=== PATIENT | male | born 1960 | race African-American/Black ===

== ENCOUNTER 2021-08-04 17:20 | Emergency (ER) | payer MEDICARE, OTHER, SELFPAY ==
--- NOTE | ~2021-08-04 | XR_ITS ---
EXAMINATION: XR CHEST CLINICAL INFORMATION: Chest pain COMPARISON: None TECHNIQUE: Frontal view of the chest was obtained. FINDINGS: No significant abnormality is noted involving the heart, lungs, mediastinum, bony thorax or soft tissues. XR/XR chest 1V IMPRESSION: Unremarkable examination.
[2021-08-04 17:36] VITALS: BP 174/107; PULSE 79; RESP 18; TEMP 36.9; O2SAT 99; BMI 27.1
--- NOTE | 2021-08-04 17:40 | ECG_ITS ---
Test Reason : CHEST PAIN Blood Pressure : / mmHG Vent. Rate : 067 BPM Atrial Rate : 067 BPM P-R Int : 150 ms QRS Dur : 106 ms QT Int : 382 ms P-R-T Axes : 050 025 050 degrees QTc Int : 403 ms Normal sinus rhythm Normal ECG No previous ECGs available Referred By: Generic ED Physician Electronically Signed By:Joaquin Luna
[2021-08-04 18:13] LABS: Appearance Urine CLEAR; Color Urine YELLOW; Glucose Urine UA NEG (NEG); Leukocyte Esterase Urine NEG (NEG); Nitrite Urine NEG (NEG); Specific Gravity - Urine 1.015 (1.005-1.025); Urine Blood NEG (NEG); Urine Ketones NEG (NEG); Urine Protein NEG (NEG-TRACE)
[2021-08-04 18:24] LABS: Anion Gap 15 (12-20); Blood Urea Nitrogen 14 mg/dL (9-16); Calcium 9.8 mg/dL (8.4-10.2); Carbon Dioxide 25 mmol/L (22-29); Chloride 105 mmol/L (96-108); Creatinine Clr Calc Pharmacy 83.9; Estimated Glomerular Filt Rate > 60; Glucose Random 140 mg/dL (60-115); Potassium 4.6 mmol/L (3.3-5.1); Sodium 140 mmol/L (135-145)
[2021-08-04 18:26] LABS: COVID-19 Test Negative (Negative)
[2021-08-04 18:30] LABS: Troponin-I High Sensitivity < 3.5 ng/L (<3.5-35.0)
--- NOTE | 2021-08-04 18:33 | ED_ITS ---
HPI - Chest Pain General Chief Complaint: Chest Pain Stated Complaint: chest pain increased heart rate left arm pain Time Seen by Provider: 08/04/21 18:33 Source: patient Mode of arrival: ambulatory Limitations: no limitations History of Present Illness HPI narrative: Patient with no significant past medical history has not seen a physician for last 10 years came to the ER for mid chest pain since yesterday with numbness seen [facility] blood pressure was 170s no shortness of breath no syncope no palpitation patient any headache no syncope episode on arrival patient's blood pressure was 174/107. Related Data Previous Rx's Medication Instructions Recorded lisinopril 20 1 tab PO DAILY #30 tab 08/04/21 mg-hydrochlorothiazide 12.5 mg tablet Allergies Allergy/AdvReac Type Severity Reaction Status Date / Time No Known Allergies Allergy Verified 08/04/21 18:48 Review of Systems Review of Systems: Yes all other systems are reviewed and are negative [facility] Past Medical History Medical History No known health problems Social History Social History Advance Directives: No Advance Directives Information Provided: No Physical Exam Vital Signs: Vital Signs: Last Vital Signs Temp 98.4 F 08/04/21 17:36 Pulse 67 08/04/21 20:00 Resp 16 08/04/21 20:00 BP 148/93 H 08/04/21 20:00 Pulse Ox 98 08/04/21 20:00 BMI result Body Mass Index 27.1 Appearance: Alert. Oriented X3. No acute distress. Eyes: No pallor/ icterus ENT: Pharynx normal. Oral Mucosa moist Neck: Normal inspection. Neck supple. CVS: Normal heart rate and rhythm. Pulses normal. Respiratory: No respiratory distress. Equal air entry bilateral, no wheezing/rales/rhonchi Abdomen: Soft and nontender. Bowel sounds are present, no mass palpable, no CVA tenderness Skin: Skin warm and dry. Normal skin color. Normal skin turgor. Extremities: No lower extremity edema. No calf tenderness Neuro: Oriented X 3. MDM - Chest Pain MDM Narrative Medical decision making narrative: Patient's atypical chest pain since yesterday 2 sets of troponin negative EKG without any acute ischemic changes no chest pain in the ER patient noted to have high blood pressure has not seen a PCP over last 10 years blood pressure improved after 10 mg lisinopril blood pressure 148/93 Lab Data Attestation: I reviewed the patient's lab results. Result diagrams: 08/04/21 17:58 Labs: Lab Results 08/04/21 08/04/21 08/04/21 Range/Units 17:58 17:58 17:58 Sodium 140 (135-145) mmol/L Potassium 4.6 (3.3-5.1) mmol/L Chloride 105 (96-108) mmol/L Carbon Dioxide 25 (22-29) mmol/L Anion Gap 15 (12-20) BUN 14 (9-16) mg/dL Creatinine 1.04 (0.5-1.4) mg/dL Estim Creat Clear Calc 83.9 Estimated GFR > 60 Random Glucose 140 H (60-115) mg/dL Calcium 9.8 (8.4-10.2) mg/dL Troponin I High Sens < 3.5 (<3.5-35.0) ng/L Urine Color Urine Appearance Urine pH (5.0-8.0) Ur Specific [place] (1.005-1.025) Urine Protein (NEG-TRACE) MG/DL Urine Glucose (UA) (NEG) MG/DL Urine Ketones (NEG) MG/DL Urine Blood (NEG) Urine Nitrite (NEG) Ur Leukocyte Esterase (NEG) COVID-19 ([facility]DA) Negative (Negative) COVID-19 Clin Com See Note 08/04/21 08/04/21 Range/Units 17:59 20:26 Sodium (135-145) mmol/L Potassium (3.3-5.1) mmol/L Chloride (96-108) mmol/L Carbon Dioxide (22-29) mmol/L Anion Gap (12-20) BUN (9-16) mg/dL Creatinine (0.5-1.4) mg/dL Estim Creat Clear Calc Estimated GFR Random Glucose (60-115) mg/dL Calcium (8.4-10.2) mg/dL Troponin I High Sens < 3.5 (<3.5-35.0) ng/L Urine Color YELLOW Urine Appearance CLEAR Urine pH 6.0 (5.0-8.0) Ur Specific [place] 1.015 (1.005-1.025) Urine Protein NEG (NEG-TRACE) MG/DL Urine Glucose (UA) NEG (NEG) MG/DL Urine Ketones NEG (NEG) MG/DL Urine Blood NEG (NEG) Urine Nitrite NEG (NEG) Ur Leukocyte Esterase NEG (NEG) COVID-19 (ELDA) (Negative) COVID-19 Clin Com ECG Data ECG #1: Attestation: I personally reviewed and interpreted this ECG as follows: Interpretation: Normal sinus rhythm heart rate 67 beats per minute normal intervals normal axis no acute ischemic changes Discharge Plan Discharge Clinical Impression: Chest pain, Hypertension Patient Disposition: Home, Self-Care Instructions: Chest Pain (ED), Hypertension (ED) Additional Instructions: Take medication as prescribed Follow-up with PCP/product development coordinator blood pressure should be less than 140/90 Prescriptions: New lisinopril-hydrochlorothiazide 20-12.5 mg tablet 1 tab PO DAILY Qty: 30 3RF Referrals: Florencio Joaquin MD [Physician] - 1 week Interventions: ED Discharge Assessment Last Done: 08/04/21 21:17 Discharge Date/Time: 08/04/21 21:18
[2021-08-04] MEDS: lisinopriL 10 MG TABLET PO (19:35)
[2021-08-04] MEDS: Aspirin 81 MG TAB.CHEW 162 MG PO (19:35)
[2021-08-04 20:00] VITALS: BP 148/93; PULSE 67; RESP 16; O2SAT 98
[2021-08-04 20:52] LABS: Troponin-I High Sensitivity < 3.5 ng/L (<3.5-35.0)
== END 2021-08-04 21:18 | disposition home or self-care (01) ==
PROVIDERS: Emergency Provider Internal Medicine
DX: R07.9 Chest pain, unspecified (principal); I10 Essential (primary) hypertension; Z20.822 Contact with and (suspected) exposure to COVID-19
CPT/HCPCS: 36415; 71045; 80048; 81003; 84484; 87635; 93005; 99283; 99284

== ENCOUNTER 2021-08-08 16:23 | Emergency (ER) | payer MEDICARE, SELFPAY | END 2021-08-08 16:58 | disposition left against medical advice (07) | PROVIDERS: Emergency Provider Emergency Medicine Emergency Medical Services | DX: R03.0 Elevated blood-pressure reading, without diagnosis of hypertension (principal) ==

== ENCOUNTER 2021-09-04 17:26 | Emergency (ER) | payer MEDICARE, MEDICAID, SELFPAY ==
[2021-09-04 18:11] VITALS: BP 130/89; PULSE 85; RESP 18; TEMP 36.6; O2SAT 100; BMI 26.1
--- NOTE | 2021-09-04 19:29 | ED.GENADULT ---
HPI - General Adult General Chief complaint: General Medical Stated complaint: HBP Time Seen by Provider: 09/04/21 19:29 Source: patient Mode of arrival: ambulatory Limitations: no limitations History of Present Illness HPI narrative: This is a 61-year-old male presenting to the emergency for medication change. Patient tells me that he is taking lisinopril-hydrochlorothiazide for hypertension however he does not like the effects this medication. He tells me that it is making his stress worse, he is urinating frequently, and he feels dizzy after taking the pill. He is wondering if there is any options a starting any medication. He tells me he is in the process of getting in to see a PCP however he has had no luck. He denies chest pain, shortness of breath, fevers, chills, nausea, vomiting, headache, dizziness, vision changes. Patient also tells me that he has been having increased anxiety and life, no suicidal or homicidal ideation. Denies visual, auditory and tactile hallucinations. No drugs, alcohol or tobacco. Patient tells me he would like something for his anxiety as well if possible. Relieving factors: none Exacerbating factors: none Associated symptoms: denies other symptoms Treatments prior to arrival: none Related Data Previous Rx's Medication Instructions Recorded lisinopril 20 1 tab PO DAILY #30 tab 08/04/21 mg-hydrochlorothiazide 12.5 mg tablet amlodipine 2.5 mg tablet (Norvasc) 2.5 mg PO DAILY #30 tab 09/04/21 hydroxyzine HCl 25 mg tablet 25 mg PO BID PRN #20 tab 09/04/21 Allergies Allergy/AdvReac Type Severity Reaction Status Date / Time No Known Allergies Allergy Verified 09/04/21 18:11 Review of Systems Review of Systems: Constitutional : No Weight loss, No Fever, No Chills, No Fatigue, No Malaise ENT/Mouth : No sore throat, No Rhinorrhea Eyes: No Eye Pain, No Swelling, No Redness Cardiovascular : No Chest Pain, No SOB, No Dyspnea on Exertion, No Orthopnea, No Edema, No Palpitations Respiratory : No Cough, No Sputum, No Wheezing Gastrointestinal : No Nausea, No Vomiting, No Diarrhea, No Constipation, No abdominal Pain, No Hematochezia, No Melena Genitourinary : No Dysuria, No Urinary Frequency, No Hematuria, Musculoskeletal : No joint pain, No Myalgias, No Joint Swelling Skin : No Skin Lesions, No rash Neuro : No Weakness, No Numbness, No Dizziness, No Headache Psych : No Anxiety/Panic, No Depression All other systems reviewed and are negative Yes all other systems are reviewed and are negative [facility] Past Medical History Attestation statement: The following information was validated with the patient. Source: old records reviewed and nursing notes reviewed Medical History Hypertension Social History Social History Advance Directives: No Advance Directives Information Provided: No Physical Exam ED Vital Signs: Vital Signs - 24 hr 09/04/21 18:11 Temperature 97.9 F Pulse Rate 85 Respiratory Rate 18 Blood Pressure 130/89 Pulse Oximetry 100 BMI result Body Mass Index 26.1 Vital signs stable. Appearance: Alert.? Oriented X3.? No acute distress.? Head: Normocephalic, atraumatic, no step-offs or deformities Eyes: Pupils equal, round and reactive to light.? ENT: Pharynx normal.? Neck: Normal inspection.? Neck supple.? CVS: Normal heart rate and rhythm.? Pulses normal.? Respiratory: No respiratory distress.? Breath sounds normal.? Abdomen: Soft and nontender.? Skin: Skin warm and dry.? Normal skin color.? Normal skin turgor.? Extremities: No lower extremity edema.? No calf ttp. 5/5 strength to bilateral upper and lower extremities Neuro: Oriented X 3.? No motor deficit.? No sensory deficit. CN 2-12 intact . Normal gait, normal coordination and balance. Course Reevaluation(s) Reevaluation #1: Educated patient on plan, 1 over worrisome signs and symptoms advised him to follow-up with his PCP. I also give him a list of PCPs in the area to see if maybe could get in sooner. Outlined worrisome signs and symptoms on discharge comfortable discharge home. Time: 19:52 Medical Decision Making MDM Narrative Medical decision making narrative: 1928 61 yo m pmhx htn presents w/ concerns of high bp. Patient tells me he was taking lisinopril- hctz however he was having side effects from this medication he has not been taking it. Also reporting increased anxiety and would like something for anxiety. Physical exam benign Plan at this time education will change patient to amlodipine 2.5 p.o. daily and give him hydroxyzine for anxiety. Medical Records Medical records reviewed: Yes I reviewed the patient's medical records. Lab Data Lab results reviewed: Yes I reviewed the patient's lab results. Critical Care Time Critical Care Time Critical Care Time: No Discharge Plan Discharge Clinical Impression: Hypertension, Anxiety Patient Disposition: Home, Self-Care Instructions: Hypertension (ED) Additional Instructions: Take your medications as prescribed. If you were prescribed antibiotics today, it is important that you take your medication to their entirety, do not skip any doses, do not finish them early. Follow-up with your primary care provider this week. Return to the emergency department with new or worsening symptoms. Such as fevers, chills, chest pain, shortness of breath, nausea, vomiting, dizziness, headache, vision changes, lethargy In case of emergency call 911 Is important that he follow up with her primary care provider. In case he cannot get in with them. I have given you a list of PCPs in the area. Please check your blood pressure Wednesday and Wednesday, write it down share with your primary care provider for better evaluation. Hydroxyzine is a medication you can take as needed for anxiety. Prescriptions: New amlodipine [Norvasc] 2.5 mg tablet 2.5 mg PO DAILY Qty: 30 0RF hydroxyzine HCl 25 mg tablet 25 mg PO BID PRN (Reason: anxiety) Qty: 20 0RF No Action lisinopril-hydrochlorothiazide 20-12.5 mg tablet 1 tab PO DAILY Qty: 30 3RF Referrals: Physician,None [Primary Care Provider] - 2 days Stand Alone Forms: Work/School Release
== END 2021-09-04 20:07 | disposition home or self-care (01) ==
PROVIDERS: Emergency Provider Internal Medicine
DX: I10 Essential (primary) hypertension (principal); F41.9 Anxiety disorder, unspecified
CPT/HCPCS: 99283

== ENCOUNTER 2021-09-23 17:35 | Emergency (ER) | payer MEDICARE, MEDICAID, SELFPAY ==
[2021-09-23 18:11] VITALS: BP 126/81; PULSE 84; RESP 20; TEMP 36.2; O2SAT 100; BMI 24.4
--- NOTE | 2021-09-23 20:39 | ED_ITS ---
HPI - Skin/Abscess/Foreign Bdy General Chief complaint: Skin/Abscess/Foreign Body Stated complaint: lump on back of head and abcess in mouth Time Seen by Provider: 09/23/21 20:39 Source: patient Mode of arrival: ambulatory Limitations: no limitations History of Present Illness HPI narrative: 61 y/o male with history of HTN presnts to the ER for evaluation of a painless, nontraumatic lump he noticed on the back of his scalp yesterday. He denies injury and says it does not hurt. He says it is hard and like bone. Not warm and no drainage. No history of the same. He also reports increased BP at home and he has an appointment with a Hvac Mechanical Engineer coming up. He take Norvasc 2.5 mg daily and his BP is all over the place. He takes it several times a day at home and admits to be very anxious about it. He is afraid of eating the wrong foods to make his BP go up. He denies chest pain, SOB, headache, vision changes, dizziness. He is on amoxicillin for a tooth infection and is seeing a dentist soon. MD complaint: lesion Onset (ago): day(s) Location: head Severity: mild Relieving factors: none Exacerbating factors: none Context: none Associated symptoms: other (anxiety, weight loss, toothache) Treatments prior to arrival: none Related Data Previous Rx's Medication Instructions Recorded lisinopril 20 1 tab PO DAILY #30 tab 08/04/21 mg-hydrochlorothiazide 12.5 mg tablet amlodipine 2.5 mg tablet (Norvasc) 2.5 mg PO DAILY #30 tab 09/04/21 hydroxyzine HCl 25 mg tablet 25 mg PO BID PRN #20 tab 09/04/21 Allergies Allergy/AdvReac Type Severity Reaction Status Date / Time No Known Allergies Allergy Verified 09/04/21 18:11 Review of Systems Review of Systems: Constitutional: No Fever, No Chills ENT/Mouth: No sore throat, No Rhinorrhea, No Swallowing Difficulty, +Dental pain Eyes: No vision changes Cardiovascular: No Chest Pain, No SOB, No Orthopnea, No Edema Respiratory: No Cough, No Sputum, No Wheezing, No dyspnea Gastrointestinal: No Nausea, No Vomiting, No Diarrhea, No abdominal Pain Musculoskeletal: No joint pain, No Myalgias Skin: No Skin Lesions, No rash Neuro: No Weakness, No Numbness, No Dizziness, No Headache Psych: +Anxiety/Panic, No Depression Heme/Lymph: No Bruising, No Lymphadenopathy Endocrine: No Polyuria, No Polydipsia [facility] Past Medical History Medical History Hypertension Social History Social History Advance Directives: No Advance Directives Information Provided: No Physical Exam Vital Signs: Vital Signs: Last Vital Signs Temp 97.2 F 09/23/21 18:11 Pulse 84 09/23/21 18:11 Resp 20 09/23/21 18:11 BP 126/81 09/23/21 18:11 Pulse Ox 100 09/23/21 18:11 BMI result Body Mass Index 24.4 Appearance: Alert. Oriented X3. No acute distress. HEENT: normal inspection. there is a firm bony ridge on the occipital area, no fluctuance, warmth or soft tissue abnormality. no facial swelling. 1st lower molar is broken and tender, no palpable abscess. CVS: Normal heart rate and rhythm. Pulses normal. Respiratory: No respiratory distress. Skin: Skin warm and dry. Normal skin color. Normal skin turgor. No rashes. Extremities: normal inspection x4 Neuro: Oriented X 3. No motor deficit. No sensory deficit. Steady gait Course Course Course Narrative: 61-year-old male with history of hypertension on amlodipine coming into the ER for evaluation of a ?lump? found on his skull yesterday. On examination this is normal anatomy and the bony ridge of the occiput. Patient was counseled and reassured that this is a normal anatomic finding. Patient is very anxious and worried about his blood pressure, what to eat and what not to eat. He has several vitamins and is asking if he should take them. Fortunately patient has follow-up with a injection mold tooling technician and his doctor coming up in early October. We discussed the appropriate way to monitor blood pressure and he is going to keep track for a injection mold tooling technician when he has the appointment in the office. Return precautions were discussed. Patient is stable for discharge home with outpatient follow-up. Discharge Plan Discharge Clinical Impression: Anxiety, HTN (hypertension) Patient Disposition: Home, Self-Care Instructions: Heart Healthy Diet (DC), DASH Eating Plan (ED) Additional Instructions: Recommend taking your amlodipine each morning when you wake up. Take your blood pressure 2 hours after you take your medication and again before you go to bed. Keep a record for your doctor and your Hvac Mechanical Engineer you are going to see in a couple weeks. See the attached information on diet for hypertension and heart health. If you develop new or worsening symptoms call 911 or come back to the ER for f urther evaluation. Prescriptions: No Action lisinopril-hydrochlorothiazide 20-12.5 mg tablet 1 tab PO DAILY Qty: 30 3RF amlodipine [Norvasc] 2.5 mg tablet 2.5 mg PO DAILY Qty: 30 0RF hydroxyzine HCl 25 mg tablet 25 mg PO BID PRN (Reason: anxiety) Qty: 20 0RF Interventions: ED Discharge Assessment Last Done: 09/23/21 21:35 Discharge Date/Time: 09/23/21 21:36
== END 2021-09-23 21:36 | disposition home or self-care (01) ==
PROVIDERS: Emergency Provider Emergency Medicine Emergency Medical Services
DX: F41.1 Generalized anxiety disorder (principal); F43.0 Acute stress reaction; I10 Essential (primary) hypertension; Z79.899 Other long term (current) drug therapy
CPT/HCPCS: 99282; 99283

== ENCOUNTER 2021-09-28 04:58 | Emergency (ER) | payer MEDICARE, MEDICAID, SELFPAY ==
[2021-09-28 05:17] VITALS: BP 148/91; PULSE 98; RESP 18; TEMP 37; O2SAT 100; BMI 25.2
--- NOTE | 2021-09-28 05:23 | PC.NURSE ---
at bedside for primary eval.
--- NOTE | 2021-09-28 05:27 | ED_ITS ---
HPI - General Adult General Chief complaint: General Medical Stated complaint: High BP Time Seen by Provider: 09/28/21 05:20 History of Present Illness HPI narrative: History of high blood pressure patient has some tingling in his feet otherwise no symptoms checked his blood pressure was noted to be elevated at 1 70/90. Skin to the ED for further evaluation. No chest pain or shortness of breath no nausea no vomiting no focal weakness no leg swelling. Patient from home. Patient is on lisinopril and amlodipine for high blood pressure and had been compliant Related Data Previous Rx's Medication Instructions Recorded lisinopril 20 1 tab PO DAILY #30 tab 08/04/21 mg-hydrochlorothiazide 12.5 mg tablet amlodipine 2.5 mg tablet (Norvasc) 2.5 mg PO DAILY #30 tab 09/04/21 hydroxyzine HCl 25 mg tablet 25 mg PO BID PRN #20 tab 09/04/21 Allergies Allergy/AdvReac Type Severity Reaction Status Date / Time No Known Allergies Allergy Verified 09/28/21 05:23 Review of Systems Review of Systems: No fever no chills no chest pain or shortness of breath Yes all other systems are reviewed and are negative [facility] Past Medical History Attestation statement: The following information was validated with the patient. Medical History Hypertension Social History Social History Advance Directives: No Advance Directives Information Provided: Yes Physical Exam ED Vital Signs: Vital Signs - 24 hr 09/28/21 05:17 Temperature 98.6 F Pulse Rate 98 Respiratory Rate 18 Blood Pressure 148/91 H Pulse Oximetry 100 BMI result Body Mass Index 25.2 Appearance: Alert. Oriented X3. No acute distress. Eyes: Pupils equal, round and reactive to light. ENT: Pharynx normal. Neck: Normal inspection. Neck supple. No lymph nodes noted. No crepitus CVS: Normal heart rate and rhythm. Pulses normal. Normal S1 and S2 Respiratory: No respiratory distress. Breath sounds normal. No Wheezing. No rales Abdomen: Soft and nontender. No rigidity. No distention. good BS x4 Skin: Skin warm and dry. Normal skin color. Normal skin turgor. Extremities: No lower extremity edema. Neurovascular intact to all extremities. No Lacerations. No Rash Neuro: Oriented X 3. No motor deficit. No sensory deficit. Moving all extermities. No slurred speech Medical Decision Making MDM Narrative Medical decision making narrative: Well-appearing no acute distress. Blood pressure is 140/90. Will discharge patient Discharge Plan Discharge Clinical Impression: Hypertension Patient Disposition: Home, Self-Care Instructions: Hypertension (ED) Prescriptions: No Action lisinopril-hydrochlorothiazide 20-12.5 mg tablet 1 tab PO DAILY Qty: 30 3RF amlodipine [Norvasc] 2.5 mg tablet 2.5 mg PO DAILY Qty: 30 0RF hydroxyzine HCl 25 mg tablet 25 mg PO BID PRN (Reason: anxiety) Qty: 20 0RF Referrals: Physician,Unknown J [Primary Care Provider] - (Follow-up with your doctor for high blood pressure recheck in 2 days)
== END 2021-09-28 06:05 | disposition home or self-care (01) ==
PROVIDERS: Emergency Provider Emergency Medicine Emergency Medical Services
DX: I10 Essential (primary) hypertension (principal); Z79.899 Other long term (current) drug therapy
CPT/HCPCS: 99282; 99283

== ENCOUNTER → 2021-10-02 14:11 | Outpatient (BNVA) | payer MEDICARE, MEDICAID, SELFPAY | PROVIDERS: Visit Provider Internal Medicine | DX: I10 Essential (primary) hypertension (principal); Z79.899 Other long term (current) drug therapy | CPT/HCPCS: 99202 ==